=== PATIENT | male | born 2000 | race Caucasian/White ===

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

== ENCOUNTER 2023-09-14 20:23 | Inpatient (IN) | payer BC ==
[2023-09-14] MEDS: Ondansetron 4 MG/2 ML SDV IVPUSH ONE (21:26)
[2023-09-14] MEDS: PHENobarbital Sodium 130 MG/ML SDV IVPUSH STA (21:27)
[2023-09-14] MEDS: Sodium Chloride 0.9% 1,000 ML IV ONE ×3 (21:30→22:30)
[2023-09-14 21:35] LABS: BASOPHILS ABSOLUTE AUTO 0.04 K/uL (0.00-0.20); BASOPHILS PERCENT AUTO 0.3 % (0.0-1.0); EOSINOPHILS ABSOLUTE AUTO 0.02 K/uL (0.00-0.45); EOSINOPHILS PERCENT AUTO 0.2 % (0.0-6.0); HEMATOCRIT 49.8 % (42.0-52.0); HEMOGLOBIN 17.8 g/dL (14.0-18.0); IMMATURE GRAN ABSOLUTE AUTO 0.03 K/uL (0.00-0.05); IMMATURE GRAN PERCENT AUTO 0.2 % (0.0-0.4); LYMPHOCYTES ABSOLUTE AUTO 0.98 K/uL (1.00-4.80); MEAN CORPUSCULAR HEMOGLOBIN 31.8 pg (28.0-32.0); MEAN CORPUSCULAR HGB CONC 35.7 g/dL (32.0-36.0); MEAN CORPUSCULAR VOLUME 89.1 fL (83.0-99.0); MONOCYTES ABSOLUTE AUTO 0.57 K/uL (0.00-0.80); MONOCYTES PERCENT AUTO 4.7 % (0.0-8.0); NEUTROPHILS ABSOLUTE AUTO 10.58 K/uL (1.80-7.70); NEUTROPHILS PERCENT AUTO 86.6 % (41.0-71.0); PLATELET COUNT,PLT 292 K/uL (150-400); RED BLOOD CELL COUNT 5.59 M/uL (4.52-5.90); WHITE BLOOD CELL COUNT,WBC 12.22 K/uL (3.9-11.3)
[2023-09-14 22:01] LABS: INR 1.05 (0.86-1.11); PTT,PARTIAL THROMBOPLSTIN TIME 28.3 SEC (23.9-30.7)
[2023-09-14 22:12] LABS: A/G RATIO 1.4 (0.9-1.6); ALANINE AMINOTRANSFERASE,ALT 45 IU/L (14-63); ALBUMIN 5.4 g/dL (3.4-5.0); ALKALINE PHOSPHATASE 97 U/L (46-116); ASPARTATE AMNIOTRANSFERASE,AST 62 IU/L (15-37); BILIRUBIN TOTAL 1.2 mg/dL (0.2-1.0); BLOOD UREA NITROGEN,BUN 36 mg/dL (7.0-18.0); CALCIUM 10.3 mg/dL (8.5-10.1); CARBON DIOXIDE,CO2 21.4 mmol/L (21.0-32.0); CHLORIDE,CL 95 mmol/L (98-107); CREATININE 2.3 mg/dL (0.8-1.3); GLUCOSE RANDOM 137 mg/dL (74-106); MAGNESIUM 2.6 mg/dL (1.8-2.4); POTASSIUM,K 4.5 mmol/L (3.5-5.1); PROTEIN TOTAL,TP 9.3 g/dL (6.4-8.2); SODIUM,NA 134 mmol/L (136-148); TSH ULTRASENSITIVE 2.93 uIU/mL (0.36-3.74)
[2023-09-14 22:13] LABS: ESTIMATED GFR 40 mL/min (>60); ETHANOL BLOOD MEDICAL < 3.0 mg/dL
[2023-09-15] MEDS ORDERED: LORazepam 2 MG/ML SDV IVPUSH PRN (00:10)
[2023-09-15] MEDS ORDERED: Thiamine 100 MG in Sodium Chloride 0.9% 100 ML IV SCH (00:30)
[2023-09-15 00:35] LABS: APPEARANCE,URINE CLEAR; BILIRUBIN,URINE NEGATIVE (NEGATIVE); COLOR,URINE YELLOW; GLUCOSE,URINE NEGATIVE (NEGATIVE); KETONES,URINE 15 mg/dL (NEGATIVE); LEUKOCYTE ESTERASE,URINE NEGATIVE (NEGATIVE); NITRITE,URINE NEGATIVE (NEGATIVE); OCCULT BLOOD,URINE NEGATIVE (NEGATIVE); PROTEIN,URINE NEGATIVE (NEGATIVE); UROBILINOGEN,URINE 0.2 EU/dL (<2.0)
[2023-09-15] MEDS ORDERED: Ondansetron 4 MG/2 ML SDV IVPUSH PRN (00:42)
[2023-09-15 00:44] LABS: AMPHETAMINES SCREEN, URINE NEGATIVE (CUTOFF=500); BARBITURATE SCREEN,URINE PRESUMPTIVE POSITIVE (CUTOFF=200); BENZODIAZEPINES SCREEN,URINE NEGATIVE (CUTOFF=150); BUPRENORPHINE SCREEN,URINE NEGATIVE (CUTOFF=10); METHADONE SCREEN, URINE NEGATIVE (CUTOFF=200); METHAMPHETAMINES SCREEN, URINE NEGATIVE (CUTOFF=500); OXYCODONE SCREEN,URINE NEGATIVE (CUT0FF=100); PCP SCREEN,URINE NEGATIVE (CUTOFF=25); THC SCREEN,URINE 20 NG/ML PRESUMPTIVE POSITIVE (CUTOFF=50)
[2023-09-15] MEDS: Sodium Chloride 0.9% 1,000 ML IV SCH (01:10)
[2023-09-15] MEDS: Pantoprazole 40 MG in Sodium Chloride 0.9% 10 ML IVPUSH ONE (01:10)
[2023-09-15] MEDS: Thiamine 200 MG/2 ML MDV IVPUSH SCH (01:20)
[2023-09-15] MEDS: Folic Acid 1 MG Tab PO SCH (01:20)
[2023-09-15 06:33] LABS: BASOPHILS ABSOLUTE AUTO 0.04 K/uL (0.00-0.20); BASOPHILS PERCENT AUTO 0.5 % (0.0-1.0); EOSINOPHILS ABSOLUTE AUTO 0.09 K/uL (0.00-0.45); EOSINOPHILS PERCENT AUTO 1.1 % (0.0-6.0); HEMATOCRIT 40.8 % (42.0-52.0); HEMOGLOBIN 14.2 g/dL (14.0-18.0); IMMATURE GRAN ABSOLUTE AUTO 0.02 K/uL (0.00-0.05); IMMATURE GRAN PERCENT AUTO 0.2 % (0.0-0.4); LYMPHOCYTES PERCENT AUTO 20.9 % (24.0-44.0); MEAN CORPUSCULAR HEMOGLOBIN 32.6 pg (28.0-32.0); MEAN CORPUSCULAR HGB CONC 34.8 g/dL (32.0-36.0); MEAN CORPUSCULAR VOLUME 93.8 fL (83.0-99.0); MEAN PLATELET VOLUME 11.3 fL (9.4-12.4); MONOCYTES ABSOLUTE AUTO 0.81 K/uL (0.00-0.80); NEUTROPHILS ABSOLUTE AUTO 5.47 K/uL (1.80-7.70); NEUTROPHILS PERCENT AUTO 67.3 % (41.0-71.0); PLATELET COUNT,PLT 206 K/uL (150-400); RED BLOOD CELL COUNT 4.35 M/uL (4.52-5.90); WHITE BLOOD CELL COUNT,WBC 8.13 K/uL (3.9-11.3)
[2023-09-15 06:59] LABS: A/G RATIO 1.2 (0.9-1.6); ALBUMIN 3.6 g/dL (3.4-5.0); BILIRUBIN TOTAL 0.8 mg/dL (0.2-1.0); CALCIUM 8.3 mg/dL (8.5-10.1); CARBON DIOXIDE,CO2 24.8 mmol/L (21.0-32.0); CREATININE 1.4 mg/dL (0.8-1.3); EST CRCL DRUG DOSING (CG) 93.53 mL/min; MAGNESIUM 2.2 mg/dL (1.8-2.4); PHOSPHORUS 4.1 mg/dL (2.6-4.7); PROTEIN TOTAL,TP 6.6 g/dL (6.4-8.2)
[2023-09-15 12:43] VITALS: BP 120/69; PULSE 61
== END 2023-09-15 14:45 | disposition home or self-care (01) | DRG 351 ==
LOC: MW.ED 20:23 → MW.MS 23:05
PROVIDERS: ADMIT Internal Medicine; ATTEND Internal Medicine
DX: M62.82 Rhabdomyolysis (principal); N17.9 Acute kidney failure, unspecified; F41.9 Anxiety disorder, unspecified; F90.9 Attention-deficit hyperactivity disorder, unspecified type; F10.930 Alcohol use, unspecified with withdrawal, uncomplicated; E86.0 Dehydration; Z87.891 Personal history of nicotine dependence
CPT/HCPCS: 36415; 80053; 80305-QW; 80307; 81003; 82550; 83690; 83735; 84100; 84443; 85025; 85610; 85730; 93005; 93010; 96361; 96374; 96375; 99222; 99284-25; 99285; A9270-GY; C9113; J2405; J2560; J3411; J3490; J7030

== ENCOUNTER 2024-01-23 15:20 | Emergency (ER) | payer BC ==
[2024-01-23 15:33] VITALS: BP 126/75; PULSE 107
[2024-01-23] MEDS: Sodium Chloride 0.9% 1,000 ML IV ONE ×3 (16:18→17:22)
[2024-01-23 16:24] LABS: BASOPHILS ABSOLUTE AUTO 0.07 K/uL (0.00-0.20); BASOPHILS PERCENT AUTO 0.9 % (0.0-1.0); EOSINOPHILS ABSOLUTE AUTO 0.11 K/uL (0.00-0.45); EOSINOPHILS PERCENT AUTO 1.3 % (0.0-6.0); HEMATOCRIT 47.9 % (42.0-52.0); HEMOGLOBIN 16.8 g/dL (14.0-18.0); IMMATURE GRAN ABSOLUTE AUTO 0.03 K/uL (0.00-0.05); IMMATURE GRAN PERCENT AUTO 0.4 % (0.0-0.4); LYMPHOCYTES ABSOLUTE AUTO 1.51 K/uL (1.00-4.80); LYMPHOCYTES PERCENT AUTO 18.5 % (24.0-44.0); MEAN CORPUSCULAR HEMOGLOBIN 31.7 pg (28.0-32.0); MEAN CORPUSCULAR HGB CONC 35.1 g/dL (32.0-36.0); MEAN CORPUSCULAR VOLUME 90.4 fL (83.0-99.0); MEAN PLATELET VOLUME 10.7 fL (9.4-12.4); MONOCYTES ABSOLUTE AUTO 0.74 K/uL (0.00-0.80); MONOCYTES PERCENT AUTO 9.1 % (0.0-8.0); NEUTROPHILS ABSOLUTE AUTO 5.69 K/uL (1.80-7.70); NEUTROPHILS PERCENT AUTO 69.8 % (41.0-71.0); PLATELET COUNT,PLT 302 K/uL (150-400); WHITE BLOOD CELL COUNT,WBC 8.15 K/uL (3.9-11.3)
[2024-01-23] MEDS: Ondansetron 4 MG/2 ML SDV IVPUSH ONE (16:24)
[2024-01-23] MEDS: Ketorolac 30 MG/ML SDV IVPUSH ONE (16:24)
[2024-01-23 17:00] LABS: A/G RATIO 1.3 (0.9-1.6); ALANINE AMINOTRANSFERASE,ALT 29 IU/L (14-63); ALBUMIN 4.7 g/dL (3.4-5.0); ALKALINE PHOSPHATASE 91 U/L (46-116); ASPARTATE AMNIOTRANSFERASE,AST 47 IU/L (15-37); BILIRUBIN TOTAL 0.6 mg/dL (0.2-1.0); BLOOD UREA NITROGEN,BUN 32 mg/dL (7.0-18.0); CALCIUM 9.5 mg/dL (8.5-10.1); CHLORIDE,CL 96 mmol/L (98-107); CREATINE KINASE,CK 909 U/L (26-308); CREATININE 1.4 mg/dL (0.8-1.3); EST CRCL DRUG DOSING (CG) 93.53 mL/min; GLUCOSE RANDOM 105 mg/dL (74-106); LIPASE 21 U/L (16-77); MAGNESIUM 2.6 mg/dL (1.8-2.4); POTASSIUM,K 4.2 mmol/L (3.5-5.1); PROTEIN TOTAL,TP 8.2 g/dL (6.4-8.2); SODIUM,NA 134 mmol/L (136-148)
[2024-01-23 17:02] LABS: ESTIMATED GFR 73 mL/min (>60); ETHANOL BLOOD MEDICAL < 3.0 mg/dL
[2024-01-23 17:14] LABS: CORONAVIRUS COVID-19 NAA NEGATIVE (NEGATIVE); INFLUENZA A NAA NEGATIVE (NEGATIVE); INFLUENZA B NAA NEGATIVE (NEGATIVE); RESPIRATORY SYNCYTIAL VIR NAA NEGATIVE (NEGATIVE)
[2024-01-23 17:19] LABS: APPEARANCE,URINE SLT CLOUDY; BILIRUBIN,URINE NEGATIVE (NEGATIVE); COLOR,URINE YELLOW; GLUCOSE,URINE NEGATIVE (NEGATIVE); KETONES,URINE NEGATIVE (NEGATIVE); LEUKOCYTE ESTERASE,URINE NEGATIVE (NEGATIVE); NITRITE,URINE NEGATIVE (NEGATIVE); OCCULT BLOOD,URINE NEGATIVE (NEGATIVE); PROTEIN,URINE NEGATIVE (NEGATIVE); UROBILINOGEN,URINE 0.2 EU/dL (<2.0)
[2024-01-23 19:09] LABS: CALCIUM 8.1 mg/dL (8.5-10.1); CARBON DIOXIDE,CO2 27.7 mmol/L (21.0-32.0); CREATININE 1.2 mg/dL (0.8-1.3); EST CRCL DRUG DOSING (CG) 109.12 mL/min; POTASSIUM,K 4.2 mmol/L (3.5-5.1)
== END 2024-01-23 20:09 | disposition home or self-care (01) ==
LOC: MW.ED 15:20
DX: R74.8 Abnormal levels of other serum enzymes (principal); Z75.8 Other problems related to medical facilities and other health care
CPT/HCPCS: 0241U; 36415; 80048; 80053; 80307; 81003; 82550; 83690; 83735; 85025; 96361; 96374; 96375; 99284; J1885; J2405; J7030

== ENCOUNTER 2024-05-29 13:39 | Emergency (ER) | payer BC ==
[2024-05-29] MEDS ORDERED: Sodium Chloride 0.9% 2.5 ML Syringe FLUSH PRN (15:06)
[2024-05-29] MEDS ORDERED: Sodium Chloride 0.9% 10 ML Syringe FLUSH PRN (15:06)
[2024-05-29] MEDS: Sodium Chloride 0.9% 1,000 ML IV STA (15:15)
[2024-05-29] MEDS: Ondansetron 4 MG/2 ML SDV IVPUSH STA (15:15)
[2024-05-29 15:16] LABS: BASOPHILS ABSOLUTE AUTO 0.07 K/uL (0.00-0.20); BASOPHILS PERCENT AUTO 1.3 % (0.0-1.0); EOSINOPHILS ABSOLUTE AUTO 0.36 K/uL (0.00-0.45); EOSINOPHILS PERCENT AUTO 6.8 % (0.0-6.0); HEMATOCRIT 40.7 % (42.0-52.0); HEMOGLOBIN 14.1 g/dL (14.0-18.0); IMMATURE GRAN ABSOLUTE AUTO 0.01 K/uL (0.00-0.05); IMMATURE GRAN PERCENT AUTO 0.2 % (0.0-0.4); LYMPHOCYTES ABSOLUTE AUTO 1.39 K/uL (1.00-4.80); LYMPHOCYTES PERCENT AUTO 26.3 % (24.0-44.0); MEAN CORPUSCULAR HEMOGLOBIN 31.8 pg (28.0-32.0); MEAN CORPUSCULAR HGB CONC 34.6 g/dL (32.0-36.0); MEAN CORPUSCULAR VOLUME 91.9 fL (83.0-99.0); MEAN PLATELET VOLUME 10.5 fL (9.4-12.4); MONOCYTES ABSOLUTE AUTO 0.36 K/uL (0.00-0.80); MONOCYTES PERCENT AUTO 6.8 % (0.0-8.0); NEUTROPHILS ABSOLUTE AUTO 3.09 K/uL (1.80-7.70); NEUTROPHILS PERCENT AUTO 58.6 % (41.0-71.0); PLATELET COUNT,PLT 235 K/uL (150-400); RED BLOOD CELL COUNT 4.43 M/uL (4.52-5.90); WHITE BLOOD CELL COUNT,WBC 5.28 K/uL (3.9-11.3)
[2024-05-29 15:46] LABS: A/G RATIO 1.2 (0.9-1.6); ALBUMIN 3.8 g/dL (3.4-5.0); BILIRUBIN TOTAL 0.2 mg/dL (0.2-1.0); CALCIUM 8.7 mg/dL (8.5-10.1); CARBON DIOXIDE,CO2 28.2 mmol/L (21.0-32.0); EST CRCL DRUG DOSING (CG) 129.84 mL/min; POTASSIUM,K 3.9 mmol/L (3.5-5.1); PROTEIN TOTAL,TP 6.9 g/dL (6.4-8.2)
[2024-05-29 15:47] LABS: MAGNESIUM 1.9 mg/dL (1.8-2.4)
[2024-05-29 17:04] VITALS: BP 120/60; PULSE 89
== END 2024-05-29 17:02 | disposition home or self-care (01) ==
LOC: MW.ED 13:39
DX: E86.0 Dehydration (principal); F17.210 Nicotine dependence, cigarettes, uncomplicated; Z75.8 Other problems related to medical facilities and other health care
CPT/HCPCS: 36415; 80053; 82550; 83690; 83735; 85025; 87428-QW; 96361; 96374; 99283; 99284-25; J2405; J7030

== ENCOUNTER 2024-07-22 23:32 | Emergency (ER) | payer BC ==
[2024-07-23] MEDS: Ondansetron 4 MG Tab.DIS PO ONE (00:15)
[2024-07-23] MEDS: Sodium Chloride 0.9% 1,000 ML IV ONE (00:17)
[2024-07-23 01:35] VITALS: BP 136/88; PULSE 99
== END 2024-07-23 01:34 | disposition home or self-care (01) ==
LOC: MW.ED 23:32
DX: F10.920 Alcohol use, unspecified with intoxication, uncomplicated (principal)
CPT/HCPCS: 96360; 99284; A9270; J7030; 99282

== ENCOUNTER 2024-09-17 06:39 | Emergency (ER) | payer BC ==
[2024-09-17] MEDS ORDERED: Sodium Chloride 0.9% 10 ML Syringe FLUSH PRN (07:15)
[2024-09-17] MEDS ORDERED: Sodium Chloride 0.9% 2.5 ML Syringe FLUSH PRN (07:15)
[2024-09-17] MEDS ORDERED: Sodium Chloride 0.9% 20 ML SDV IV PRN (07:15)
[2024-09-17] MEDS: Diphtheria,Pertussis(Acell),Tetanus Vaccine 0.5 ML Syringe IM ONE (07:24)
[2024-09-17] MEDS: Sodium Chloride 0.9% 1,000 ML IV ONE (07:24)
[2024-09-17] MEDS: chlordiazePOXIDE 25 MG Cap PO ONE (07:24)
[2024-09-17 07:40] LABS: BASOPHILS ABSOLUTE AUTO 0.07 K/uL (0.00-0.20); BASOPHILS PERCENT AUTO 1.4 % (0.0-1.0); EOSINOPHILS ABSOLUTE AUTO 0.33 K/uL (0.00-0.45); EOSINOPHILS PERCENT AUTO 6.7 % (0.0-6.0); HEMATOCRIT 42.1 % (42.0-52.0); HEMOGLOBIN 14.7 g/dL (14.0-18.0); IMMATURE GRAN ABSOLUTE AUTO 0.01 K/uL (0.00-0.05); IMMATURE GRAN PERCENT AUTO 0.2 % (0.0-0.4); LYMPHOCYTES ABSOLUTE AUTO 1.49 K/uL (1.00-4.80); MEAN CORPUSCULAR HEMOGLOBIN 33.3 pg (28.0-32.0); MEAN CORPUSCULAR HGB CONC 34.9 g/dL (32.0-36.0); MEAN CORPUSCULAR VOLUME 95.5 fL (83.0-99.0); MEAN PLATELET VOLUME 10.2 fL (9.4-12.4); MONOCYTES ABSOLUTE AUTO 0.39 K/uL (0.00-0.80); MONOCYTES PERCENT AUTO 7.9 % (0.0-8.0); NEUTROPHILS ABSOLUTE AUTO 2.67 K/uL (1.80-7.70); NEUTROPHILS PERCENT AUTO 53.8 % (41.0-71.0); PLATELET COUNT,PLT 234 K/uL (150-400); RED BLOOD CELL COUNT 4.41 M/uL (4.52-5.90); WHITE BLOOD CELL COUNT,WBC 4.96 K/uL (3.9-11.3)
[2024-09-17 08:08] LABS: A/G RATIO 1.3 (0.9-1.6); BILIRUBIN TOTAL 0.4 mg/dL (0.2-1.0); CALCIUM 8.3 mg/dL (8.5-10.1); CREATININE 0.9 mg/dL (0.8-1.3); EST CRCL DRUG DOSING (CG) 144.26 mL/min; MAGNESIUM 1.9 mg/dL (1.8-2.4); POTASSIUM,K 3.9 mmol/L (3.5-5.1)
[2024-09-17 08:56] VITALS: BP 146/88; PULSE 89
== END 2024-09-17 09:29 | disposition home or self-care (01) ==
LOC: MW.ED 06:39
DX: S60.031A Contusion of right middle finger without damage to nail, initial encounter (principal); F10.129 Alcohol abuse with intoxication, unspecified; W23.0XXA Caught, crushed, jammed, or pinched between moving objects, initial encounter
CPT/HCPCS: 11740; 36415; 73140; 80053; 80307; 83735; 85025; 90471; 96360; 99284; A9270; J7030; 99283

== ENCOUNTER 2024-11-02 19:49 | Emergency (ER) | payer BC ==
[2024-11-02] MEDS ORDERED: Sodium Chloride 0.9% 10 ML Syringe FLUSH PRN (20:13)
[2024-11-02] MEDS ORDERED: Sodium Chloride 0.9% 20 ML SDV IV PRN (20:13)
[2024-11-02] MEDS ORDERED: Sodium Chloride 0.9% 2.5 ML Syringe FLUSH PRN (20:13)
[2024-11-02] MEDS: Lactated Ringers 1,000 ML IV SCH (20:21)
[2024-11-02 20:26] LABS: BASOPHILS PERCENT AUTO 0.8 % (0.0-1.0); EOSINOPHILS ABSOLUTE AUTO 0.02 K/uL (0.00-0.45); EOSINOPHILS PERCENT AUTO 0.2 % (0.0-6.0); HEMATOCRIT 52.7 % (42.0-52.0); IMMATURE GRAN ABSOLUTE AUTO 0.03 K/uL (0.00-0.05); IMMATURE GRAN PERCENT AUTO 0.2 % (0.0-0.4); LYMPHOCYTES ABSOLUTE AUTO 1.01 K/uL (1.00-4.80); LYMPHOCYTES PERCENT AUTO 8.2 % (24.0-44.0); MEAN CORPUSCULAR HEMOGLOBIN 32.2 pg (28.0-32.0); MEAN CORPUSCULAR HGB CONC 34.2 g/dL (32.0-36.0); MEAN CORPUSCULAR VOLUME 94.3 fL (83.0-99.0); MEAN PLATELET VOLUME 10.9 fL (9.4-12.4); MONOCYTES ABSOLUTE AUTO 0.86 K/uL (0.00-0.80); NEUTROPHILS ABSOLUTE AUTO 10.31 K/uL (1.80-7.70); NEUTROPHILS PERCENT AUTO 83.6 % (41.0-71.0); PLATELET COUNT,PLT 212 K/uL (150-400); RED BLOOD CELL COUNT 5.59 M/uL (4.52-5.90); WHITE BLOOD CELL COUNT,WBC 12.33 K/uL (3.9-11.3)
[2024-11-02 20:48] LABS: A/G RATIO 1.5 (0.9-1.6); ALBUMIN 5.5 g/dL (3.4-5.0); BILIRUBIN TOTAL 1.5 mg/dL (0.2-1.0); CALCIUM 10.3 mg/dL (8.5-10.1); CARBON DIOXIDE,CO2 21.1 mmol/L (21.0-32.0); CREATININE 2.2 mg/dL (0.8-1.3); EST CRCL DRUG DOSING (CG) 59.02 mL/min; PROTEIN TOTAL,TP 9.2 g/dL (6.4-8.2)
[2024-11-02] MEDS: Lactated Ringers 1,000 ML IV ONE (21:13)
[2024-11-02 22:17] LABS: APPEARANCE,URINE CLEAR; COLOR,URINE YELLOW; GLUCOSE,URINE NEGATIVE (NEGATIVE); KETONES,URINE >=80 mg/dL (NEGATIVE); LEUKOCYTE ESTERASE,URINE NEGATIVE (NEGATIVE); NITRITE,URINE NEGATIVE (NEGATIVE); OCCULT BLOOD,URINE TRACE-INTACT (NEGATIVE); PROTEIN,URINE 30 mg/dL (NEGATIVE); UROBILINOGEN,URINE 0.2 EU/dL (<2.0)
[2024-11-02 22:21] LABS: BILIRUBIN,URINE SMALL (NEGATIVE)
[2024-11-02 22:21] LABS: CALCIUM 9.4 mg/dL (8.5-10.1); CARBON DIOXIDE,CO2 24.9 mmol/L (21.0-32.0); CREATININE 1.7 mg/dL (0.8-1.3); EST CRCL DRUG DOSING (CG) 76.38 mL/min; POTASSIUM,K 3.9 mmol/L (3.5-5.1)
[2024-11-02 22:26] LABS: AMPHETAMINES SCREEN, URINE NEGATIVE (CUTOFF=500); BARBITURATE SCREEN,URINE NEGATIVE (CUTOFF=200); BENZODIAZEPINES SCREEN,URINE NEGATIVE (CUTOFF=150); BUPRENORPHINE SCREEN,URINE NEGATIVE (CUTOFF=10); METHADONE SCREEN, URINE NEGATIVE (CUTOFF=200); METHAMPHETAMINES SCREEN, URINE NEGATIVE (CUTOFF=500); OXYCODONE SCREEN,URINE NEGATIVE (CUT0FF=100); PCP SCREEN,URINE NEGATIVE (CUTOFF=25); THC SCREEN,URINE 20 NG/ML NEGATIVE (CUTOFF=50)
[2024-11-02 22:33] LABS: BACTERIA,URINE FEW (NEGATIVE); EPITHELIAL CELLS,URINE RARE (NONE-FEW); RBC,URINE 0-2 (0-2/HPF); WBC,URINE 0-4 (0-5/HPF)
[2024-11-02 23:08] VITALS: BP 131/95; PULSE 109
== END 2024-11-02 23:26 | disposition home or self-care (01) ==
LOC: MW.ED 19:49
DX: E86.0 Dehydration (principal); N17.9 Acute kidney failure, unspecified; E87.1 Hypo-osmolality and hyponatremia; Z75.3 Unavailability and inaccessibility of health-care facilities
CPT/HCPCS: 36415; 80048; 80053; 80305; 81001; 82550; 83735; 85025; 93005; 96360; 96361; 99284; J7120; 93010

== ENCOUNTER 2024-11-27 10:00 | Emergency (ER) | payer BC ==
[2024-11-27] MEDS: Ondansetron 4 MG/2 ML SDV IVPUSH ONE (10:33)
[2024-11-27 10:40] LABS: BASOPHILS ABSOLUTE AUTO 0.07 K/uL (0.00-0.20); BASOPHILS PERCENT AUTO 0.9 % (0.0-1.0); EOSINOPHILS ABSOLUTE AUTO 0.47 K/uL (0.00-0.45); EOSINOPHILS PERCENT AUTO 6.0 % (0.0-6.0); IMMATURE GRAN ABSOLUTE AUTO 0.01 K/uL (0.00-0.05); IMMATURE GRAN PERCENT AUTO 0.1 % (0.0-0.4); LYMPHOCYTES ABSOLUTE AUTO 0.96 K/uL (1.00-4.80); LYMPHOCYTES PERCENT AUTO 12.2 % (24.0-44.0); MEAN PLATELET VOLUME 10.4 fL (9.4-12.4); MONOCYTES ABSOLUTE AUTO 0.51 K/uL (0.00-0.80); MONOCYTES PERCENT AUTO 6.5 % (0.0-8.0); NEUTROPHILS ABSOLUTE AUTO 5.82 K/uL (1.80-7.70); NEUTROPHILS PERCENT AUTO 74.3 % (41.0-71.0); NRBC ABSOLUTE 0.00 K/uL (0.00-0.02); NRBC PERCENT 0.0 /100WBC (0.0-0.2); PLATELET COUNT,PLT 203 K/uL (150-400); RED BLOOD CELL COUNT 5.08 M/uL (4.52-5.90); WHITE BLOOD CELL COUNT,WBC 7.84 K/uL (3.9-11.3)
[2024-11-27 10:46] LABS: APPEARANCE,URINE CLEAR; GLUCOSE,URINE NEGATIVE (NEGATIVE); OCCULT BLOOD,URINE NEGATIVE (NEGATIVE)
[2024-11-27 11:03] LABS: EPITHELIAL CELLS,URINE RARE (NONE-FEW)
[2024-11-27 11:07] LABS: A/G RATIO 1.4 (0.9-1.6); ALANINE AMINOTRANSFERASE,ALT 40.0 IU/L (14-63); ASPARTATE AMNIOTRANSFERASE,AST 47.0 IU/L (15-37); BILIRUBIN TOTAL 1.3 mg/dL (0.2-1.0); BLOOD UREA NITROGEN,BUN 14.0 mg/dL (7.0-18.0); CARBON DIOXIDE,CO2 25.8 mmol/L (21.0-32.0); CHLORIDE,CL 101.0 mmol/L (98-107); CREATINE KINASE,CK 105.0 U/L (26-308); CREATININE 0.9 mg/dL (0.8-1.3); EST CRCL DRUG DOSING (CG) 144.26 mL/min; GLUCOSE RANDOM 107.0 mg/dL (74-106); POTASSIUM,K 3.8 mmol/L (3.5-5.1); PROTEIN TOTAL,TP 7.3 g/dL (6.4-8.2); SODIUM,NA 138.0 mmol/L (136-148)
[2024-11-27 11:08] LABS: ESTIMATED GFR 123.0 mL/min (>60)
[2024-11-27 11:53] VITALS: BP 122/70; PULSE 70
== END 2024-11-27 11:53 | disposition home or self-care (01) ==
LOC: MW.ED 10:00
DX: K29.70 Gastritis, unspecified, without bleeding (principal)
CPT/HCPCS: 36415; 80053; 81001; 82550; 83690; 85025; 96361; 96374; 99284; J2405; J7030; 99283